=== PATIENT | male | born 1960 | race Caucasian/White ===

== ENCOUNTER → 2023-07-31 14:58 | Outpatient (REF) | payer BC, SELFPAY | LOC: HWRAD 14:58 | PROVIDERS: ATTENDING PHYSICIAN Physician Assistant Medical | DX: R10.84 Generalized abdominal pain (principal) | CPT/HCPCS: 74177; Q9967 ==

== ENCOUNTER 2024-04-26 06:19 | Day surgery (SDC) | payer BC, SELFPAY | END 2024-04-26 08:40 | disposition home or self-care (01) | LOC: GI 06:19 | PROVIDERS: ATTENDING PHYSICIAN Internal Medicine Gastroenterology | DX: Z12.11 Encounter for screening for malignant neoplasm of colon (principal); K64.8 Other hemorrhoids; K57.30 Diverticulosis of large intestine without perforation or abscess without bleeding; D12.5 Benign neoplasm of sigmoid colon | CPT/HCPCS: 45385; 88305 ==